=== PATIENT | female | born 1955 | race Caucasian/White ===

== ENCOUNTER → 2018-05-17 | Outpatient (CLI) | payer OTHER ==
--- NOTE | 2018-05-17 14:23 | EKG ---
[facility] [address] [place] [address] Test Date: 2018-05-17 Test Time: 14:19:59 Pat Name: ALEX SIFUENTES Department: Room: Gender: F Management Sme: REX : 1955 Requested By: MAO ROMO Order Number: [id number] Reading MD: Jr Conroy MD Measurements Intervals [place] Rate: 68 P: 62 LA: 168 QRS: 65 QRSD: 82 T: 67 QT: 378 QTc: 402 Interpretive Statements SINUS RHYTHM Electronically Signed On 05-18-2018 11:29:52 LEGAL COORDINATOR by Jr Conroy MD
== END | disposition home or self-care (01) ==
LOC: EKG 14:01
PROVIDERS: ATTEND Otolaryngology Otology & Neurotology
DX: Z01.818 Encounter for other preprocedural examination (principal)
CPT/HCPCS: 93005

== ENCOUNTER → 2019-02-01 | Outpatient (CLI) | payer OTHER ==
--- NOTE | 2019-02-01 15:18 | EKG ---
[facility] [address] [place] [address] Test Date: 2019-02-01 Test Time: 15:14:11 Pat Name: ALEX SIFUENTES Department: Room: Gender: F Dental [employer]: AMAYA : 1955 Requested By: MAO ROMO Order Number: [id number] Reading MD: Measurements Intervals [place] Rate: 69 P: 34 MD: 156 QRS: 38 QRSD: 80 T: 32 QT: 370 QTc: 398 Interpretive Statements SINUS RHYTHM NORMAL ECG RI6.01 Unconfirmed report Compared to ECG 05/17/2018 14:19:59 No significant changes
== END | disposition home or self-care (01) ==
LOC: EKG 14:35
PROVIDERS: ATTEND Otolaryngology Otology & Neurotology
DX: Z01.818 Encounter for other preprocedural examination (principal)
CPT/HCPCS: 93005